=== PATIENT | female | born 1980 | race African-American/Black ===

== ENCOUNTER 2023-11-13 08:48 | Inpatient (IN) | payer MEDICAID ==
[~2023-11-13] VITALS: Ht 175.3 cm; Wt 98.0 kg
[2023-11-13] MEDS: KETOROLAC 30MG/ML VIAL IV ONE (09:13)
[2023-11-13] MEDS: ONDANSETRON HCL 4MG/2ML INJ IV ONE (09:13)
[2023-11-13 09:19] LABS: BASOPHILS % 1.8 % (0.0-2.0); EOSINOPHILS % 0.8 % (0.0-5.0); HEMATOCRIT. 33.8 % (36.0-48.0); HEMOGLOBIN. 9.7 g/dL (12.0-16.0); LYMPHOCYTES % 16.1 % (20.0-50.0); MEAN CORPUSCULAR HEMOGLOBIN 18.8 pg (28.0-32.0); MEAN CORPUSCULAR HGB CONC 28.6 g/dL (31.0-37.0); MEAN CORPUSCULAR VOLUME 65.9 fL (81.0-99.0); MEAN PLATELET VOLUME 9.9 fl (7.4-10.4); MONOCYTES % 5.7 % (2.0-8.0); NEUTROPHILS % 75.6 % (40.0-76.0); PLATELET 202 x1000/uL (130-400); RED BLOOD CELL COUNT 5.13 mill/uL (4.2-5.4); RED CELL DISTRIBUTION WIDTH 22.2 % (11.6-14.6); WHITE BLOOD COUNT 6.6 x1000/uL (4.5-11.0)
[2023-11-13 09:24] LABS: CARBON DIOXIDE 28 mEq/L (21-32); CHLORIDE 104 mEq/L (98-107); POTASSIUM 3.6 mEq/L (3.5-5.1); SODIUM 140 mEq/L (136-145)
[2023-11-13 09:25] LABS: CALCIUM 10.3 mg/dL (8.7-10.4)
[2023-11-13] MEDS ORDERED: DICYCLOMINE 10 MG/5 ML ORAL SYR PO STA (09:28)
[2023-11-13 09:29] LABS: CREATININE 0.7 mg/dL (0.6-1.0); GLUCOSE 100 mg/dL (70-105)
[2023-11-13 09:30] LABS: TROPONIN I HIGH SENSITIVITY 15 ng/L (3.0-34); UREA NITROGEN BLOOD 8 mg/dL (9-23)
[2023-11-13 09:31] LABS: ALANINE AMINOTRANSFERASE 14 IU/L (10-49); ASPARTATE AMINOTRANSFERASE 15 IU/L (<34)
[2023-11-13 09:32] LABS: ALBUMIN 4.8 g/dL (3.2-4.8); BILIRUBIN TOTAL 0.5 mg/dL (0.1-1.0); PROTEIN TOTAL 8.2 g/dL (6.0-8.3)
[2023-11-13 09:59] LABS: ADD RBC MORPHOLOGY YES; DIFFERENTIAL COMMENT 1
[2023-11-13] MEDS: MAGNESIUM/ALUMINUM HYDROXIDE/SIMETHICONE 30ML UDC PO STA (10:00)
[2023-11-13] MEDS: DICYCLOMINE HCL 10MG CAPSULE PO SCH (10:00)
[2023-11-13 10:44] LABS: ANISOCYTOSIS 2+; GIANT PLATELETS 2+; HYPOCHROMASIA 1+; MICROCYTOSIS 2+; PLATELET ESTIMATE NORMAL
[2023-11-13 13:40] VITALS: BP 133/69; PULSE 56; RESP 20; TEMP 98.4
[2023-11-13 16:00] VITALS: BP 132/63; PULSE 60; RESP 20; TEMP 97.8
[2023-11-13] MEDS ORDERED: ONDANSETRON HCL 4MG/2ML INJ IV PRN (17:30)
[2023-11-13] MEDS ORDERED: ACETAMINOPHEN 325MG TABLET PO PRN (17:30)
[2023-11-13] MEDS: FAMOTIDINE 20MG TABLET PO SCH (17:58)
[2023-11-13 20:00] VITALS: BP 124/73; PULSE 72; RESP 18; TEMP 97.9
[2023-11-13 22:07] LABS: TROPONIN I HIGH SENSITIVITY 14 ng/L (3.0-34)
[2023-11-14 00:27] VITALS: BP 152/62; PULSE 67; RESP 19; TEMP 97.3
[2023-11-14 04:00] VITALS: BP 124/76; PULSE 64; RESP 19; TEMP 98.1
[2023-11-14 08:00] VITALS: BP 120/79; PULSE 63; RESP 20; TEMP 98.4
[2023-11-14 12:00] VITALS: BP 120/67; PULSE 74; RESP 20; TEMP 98.4
[2023-11-14 12:38] LABS: CLARITY URINE CLOUDY (CLEAR); COLOR URINE YELLOW (YELLOW); GLUCOSE URINE NEGATIVE (NEGATIVE); KETONES URINE NEGATIVE (NEGATIVE); LEUKOCYTE ESTERASE URINE 2+ (NEGATIVE); NITRITE URINE NEGATIVE (NEGATIVE); OCCULT BLOOD URINE NEGATIVE (NEGATIVE); PROTEIN URINE NEGATIVE (NEGATIVE); SPECIFIC GRAVITY URINE 1.023 (1.005-1.030)
[2023-11-14 13:28] LABS: BACTERIA URINE 4+; SQUAMOUS EPITHELIAL CELL URINE 3+ /lpf (RARE/1+)
[2023-11-14 13:30] LABS: *AMPHETAMINES SCREEN URINE NEGATIVE (NEGATIVE); *BARBITURATES SCREEN URINE NEGATIVE (NEGATIVE); *BENZODIAZEPINES SCREEN URINE NEGATIVE (NEGATIVE); *COCAINE SCREEN URINE NEGATIVE (NEGATIVE); CANNABINOID URINE SCREEN NEGATIVE (NEGATIVE); METHADONE URINE SCREEN NEGATIVE (NEGATIVE); OPIATES URINE SCREEN NEGATIVE (NEGATIVE); PHENCYCLIDINE URINE SCREEN NEGATIVE (NEGATIVE)
[2023-11-14 13:31] LABS: ECSTASY MDMA SCREEN URINE NEGATIVE (NEGATIVE); WBC URINE 25-50 /hpf (0-2)
[2023-11-14 13:40] VITALS: BP 120/67; PULSE 74; TEMP 98.6; O2SAT 100
== END 2023-11-14 14:48 | disposition home or self-care (01) | DRG 243 ==
LOC: ER 08:55 → 5WST 11:55 → EDBEDREQ 12:05 → EDBEDREQTM 12:05 → 7WST 14:13
PROVIDERS: ADMIT Internal Medicine; ATTEND Internal Medicine
DX: K21.9 Gastro-esophageal reflux disease without esophagitis (principal); E66.9 Obesity, unspecified; Z68.31 Body mass index [BMI] 31.0-31.9, adult
CPT/HCPCS: 36415; 71045; 80053; 80305; 81003; 83880; 84484; 85025; 93005; 99285; J1885; J2405

== ENCOUNTER 2024-09-10 11:59 | Emergency (ER) | payer MEDICAID, OTHER ==
[~2024-09-10] VITALS: Ht 175.3 cm; Wt 105.0 kg
[2024-09-10 12:02] VITALS: PULSE 90; O2SAT 94
[2024-09-10 12:06] VITALS: BP 130/71; RESP 16; TEMP 36.7; O2SAT 99
[2024-09-10] MEDS: ONDANSETRON HCL 4MG/2ML INJ IM ONE (12:46)
[2024-09-10] MEDS: SODIUM CHLORIDE 0.9% 1,000 ML IV ONE (13:21)
[2024-09-10] MEDS: ONDANSETRON HCL 4MG/2ML INJ IV STA (13:27)
[2024-09-10] MEDS: FAMOTIDINE 20MG/2ML VIAL IV ONE (13:28)
[2024-09-10 13:41] LABS: BASOPHILS % 1.3 % (0.0-2.0); EOSINOPHILS % 0.2 % (0.0-5.0); HEMATOCRIT. 33.2 % (36.0-48.0); HEMOGLOBIN. 9.4 g/dL (12.0-16.0); LYMPHOCYTES % 21.5 % (20.0-50.0); MEAN CORPUSCULAR HEMOGLOBIN 19.2 pg (28.0-32.0); MEAN CORPUSCULAR HGB CONC 28.2 g/dL (31.0-37.0); MEAN PLATELET VOLUME 10.1 fl (7.4-10.4); MONOCYTES % 4.9 % (2.0-8.0); NEUTROPHILS % 72.1 % (40.0-76.0); PLATELET 193 x1000/uL (130-400); RED BLOOD CELL COUNT 4.88 mill/uL (4.2-5.4); RED CELL DISTRIBUTION WIDTH 23.2 % (11.6-14.6); WHITE BLOOD COUNT 7.6 x1000/uL (4.5-11.0)
[2024-09-10 13:51] LABS: ADD RBC MORPHOLOGY YES; DIFFERENTIAL COMMENT 1
[2024-09-10 13:58] LABS: CHLORIDE 95 mEq/L (98-107); POTASSIUM 3.2 mEq/L (3.5-5.1); SODIUM 135 mEq/L (136-145)
[2024-09-10 13:59] LABS: CARBON DIOXIDE 30 mEq/L (21-32)
[2024-09-10 14:04] LABS: CREATININE 0.8 mg/dL (0.6-1.0); GLUCOSE 86 mg/dL (70-105)
[2024-09-10 14:05] LABS: UREA NITROGEN BLOOD 9 mg/dL (9-23)
[2024-09-10 14:06] LABS: ALANINE AMINOTRANSFERASE 15 IU/L (10-49); ALBUMIN 4.7 g/dL (3.2-4.8); ASPARTATE AMINOTRANSFERASE 16 IU/L (<34)
[2024-09-10 14:07] LABS: BILIRUBIN DIRECT 0.4 mg/dL (<=3.0); BILIRUBIN TOTAL 1.4 mg/dL (0.1-1.0); PROTEIN TOTAL 8.7 g/dL (6.0-8.3)
[2024-09-10 14:26] LABS: HYPOCHROMASIA 1+
[2024-09-10 14:27] LABS: ANISOCYTOSIS 2+; MICROCYTOSIS 1+
[2024-09-10 14:28] LABS: PLATELET ESTIMATE NORMAL
[2024-09-10 14:29] LABS: ETHANOL BLOOD < 10 mg/dL (<10)
[2024-09-10] MEDS: DICYCLOMINE HCL 10MG/ML 2ML VIAL IM ONE (14:42)
[2024-09-10] MEDS: POTASSIUM CHLORIDE 20MEQ/PACKET PO NR (14:53)
== END 2024-09-10 15:26 | disposition home or self-care (01) ==
LOC: ER 12:10
DX: K29.70 Gastritis, unspecified, without bleeding (principal); K21.9 Gastro-esophageal reflux disease without esophagitis
CPT/HCPCS: 80076; 80048; 81025; 80320; 83690; 85025; 36415; 96361; 96372; 96374; 96375; 99284; J0500; J3490; J2405; J7030; Z7610 ×2; C1893; A4606; G0480